=== PATIENT | male | born 1955 | race African-American/Black ===

== ENCOUNTER → 2021-02-02 | Day surgery (SDC) | payer OTHER ==
[~2021-02-02] MED LIST: ADULT LOW DOSE81 MG PO; ATORVASTATIN CA80 MG PO; CARVEDILOL12.5 MG PO; HUMULIN R100 UNIT/1 SUBQ; LEVEMIR FL100 UNIT/2 SUBQ; NORVASC10 MG PO; VALSARTAN-HCTZ1 EAC1 PO
--- NOTE | ~2021-02-02 | OP ---
[facility] [address] [place] [address] OPERATIVE REPORT Name: JANINA HUTTON SR Room: [facility]#: [id number] Admission: 02/02/21 Attend Phys: Gary Mcguire Discharge: Date of : 53 Report #: [id number] THIS REPORT FOR: cc: Landen Iqbal MD, Anthony MD Patterson,Gary Izquierdo MD ~ DATE OF SURGERY: 02/02/2021 PREOPERATIVE DIAGNOSIS: Left inguinal hernia. POSTOPERATIVE DIAGNOSIS: Left inguinal hernia. OPERATION: Laparoscopic repair of left inguinal hernia with mesh. SURGEON: Gary Mcguire MD ANESTHESIA: General. ESTIMATED BLOOD LOSS: Minimal. SPECIMENS: None. DESCRIPTION OF PROCEDURE: After informed consent was obtained, the patient was brought to the operating room and placed supine. SCDs were placed and working, preoperative antibiotics were administered, general anesthesia was induced. The abdomen was prepped and draped in the usual sterile fashion. A 10 mm incision was made above the umbilicus. Fascia was incised and a trocar was placed. Pneumoperitoneum was established. Right and left lower quadrant 5 mm trocars were placed under direct vision. The peritoneum at the left ASIS was scored. Peritoneum was then incised medially and reflected inferiorly. The pubic bone was identified. The cord structures were identified and protected at all times. The epigastric vessels were identified. He had an indirect hernia and this was all fully reduced. I inserted a large Bard 3DMax mesh. It was tacked to Kian's ligament with 2 absorbable tacks. I then closed the peritoneum over the mesh using a tacker. There was 100% coverage of the mesh and no exposed mesh. The ports were then removed under direct vision. Fascia was then closed with a valpor-dn-mpqld 0 Vicryl. Skin was closed with 4-0 Monocryl. Incisions were dressed with Steri-Strips. COMPLICATIONS: [place] [id number] OPERATIVE REPORT Name: JANINA HUTTON SR Room: [facility]#: [id number] Admission: 02/02/21 Attend Phys: Gary Mcguire Discharge: Date of : 53 Report #: [id number] DISPOSITION: The patient was taken to recovery in satisfactory condition. By: [id number] Mcguire MD /nt
[2021-02-02 07:07] LABS: CALCIUM 8.3 mg/dL (8.5-10.1); CREATININE 1.8 mg/dL (0.6-1.3); POTASSIUM 4.8 mmol/L (3.5-5.1)
[2021-02-02 07:09] LABS: HEMATOCRIT 29.5 % (42.0-52.0); HEMOGLOBIN 9.6 gm/dL (14.0-18.0); MCH 27.5 pg (26.0-34.0); MCHC 32.7 g/dL (28.0-37.0); MPV 6.4 fl. (7.2-11.1); RBC 3.51 mil/uL (4.50-6.00); RDW-CV 13.3 % (10.5-14.5); WBC 6.1 thou/uL (4.0-11.0)
--- NOTE | 2021-02-02 12:55 | EKG ---
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 <ELECTRONICALLY SIGNED> By: Chao Cartagena MD, FACC 02/02/21 1255 1 1 Chao Cartagena MD, FACC /EPI
== END | disposition home or self-care (01) ==
LOC: M.SUR 06:17
PROVIDERS: ATTEND Surgery
DX: K40.90 Unilateral inguinal hernia, without obstruction or gangrene, not specified as recurrent (principal); R10.9 Unspecified abdominal pain; Z98.890 Other specified postprocedural states; Z79.899 Other long term (current) drug therapy; Z88.0 Allergy status to penicillin; Z20.822 Contact with and (suspected) exposure to COVID-19